=== PATIENT | male | born 1955 | race Hispanic/Latino ===

== ENCOUNTER 2017-08-26 01:33 | Inpatient (IN) | payer OTHER ==
[2017-08-26] MEDS ORDERED: Ondansetron HCl/PF 4 MG/2 ML Vial IVP PRN ×2 (05:17→07:31)
[2017-08-26] MEDS ORDERED: Ondansetron ODT 4 MG TAB SL PRN (05:17)
[2017-08-26 05:27] VITALS: BMI 30.3
[2017-08-26] MEDS ORDERED: Sodium Chloride 0.9% 1,000 ML IV SCH (05:30)
[2017-08-26] MEDS ORDERED: Ondansetron ODT 4 MG TAB PO PRN (07:31)
[2017-08-26] MEDS ORDERED: Senokot 8.6 MG TAB PO PRN (07:31)
[2017-08-26] MEDS ORDERED: Acetaminophen 325 MG TAB PO PRN (08:19)
[2017-08-26] MEDS ORDERED: Loperamide HCl 2 MG CAP PO PRN (08:19)
[2017-08-26] MEDS ORDERED: Milk Of Magnesia 30 ML UDCUP PO PRN (08:19)
[2017-08-26] MEDS ORDERED: Artificial Tear Sol 15 ML BOT EA EYE PRN (08:19)
[2017-08-26] MEDS ORDERED: Diabetic Tussin 200 MG/10 ML UDCUP PO PRN (08:19)
[2017-08-26] MEDS ORDERED: Sodium Chloride 0.65% Nasal 44 ML BOT EA NARE PRN (08:19)
[2017-08-26] MEDS ORDERED: Loratadine 10 MG TAB PO PRN (08:19)
[2017-08-26] MEDS ORDERED: hydrALAZINE 20 MG/ML VIAL SLOW IVP PRN (08:19)
[2017-08-26] MEDS ORDERED: Mag-Al 1200 mg/1200 mg/30 ML UDCUP PO PRN (08:19)
[2017-08-26] MEDS ORDERED: Eucerin (Mineral Oil/Petrolatum,White) 30 gm Jar TOP PRN (08:19)
[2017-08-26] MEDS ORDERED: Chloraseptic Spray 180 ml Bottle PO PRN (08:19)
[2017-08-26] MEDS: Famotidine 20 MG TAB PO SCH ×2 (08:51→21:15)
[2017-08-26] MEDS ORDERED: FLU VACC QS2017-18 36 mo. & older 0.5 ML SYRINGE IM ONE (09:00)
[2017-08-26] MEDS ORDERED: Prevnar 13-Val Conj/PF 0.5 ML SYRINGE IM ONE (09:00)
[2017-08-26 09:37] LABS: INR-International Normal Ratio 1.3; PTT 34.1 SEC (22.9-36.1); Prothrombin Time 16.7 SEC (12.0-14.7)
[2017-08-26 09:54] LABS: #Eosinphils 0.1 thou/uL (0.0-0.7); #Lymphocytes 0.9 thou/uL (1.20-3.40); #Monocytes 0.5 thou/uL (0.11-0.59); #Neutrophils 4.1 thou/uL (1.40-6.50); %Basophils 0.2 % (0.0-1.0); %Eosinophils 1.6 % (0.0-10.0); %Lymphocytes 16.2 % (21.0-51.0); %Monocytes 8.8 % (0.0-10.0); %Neutrophils 73.2 % (42.0-75.0); ALT (SGPT) 38 U/L (8-55); AST (SGOT) 50 U/L (5-34); Albumin 3.9 g/dL (3.4-4.8); Alkaline Phosphatase 106 U/L (40-150); Anion Gap 10 mmol/L (10-20); BUN (Urea Nitrogen) 10 mg/dL (8.4-25.7); Bilirubin, Total 1.8 mg/dL (0.2-1.2); Calc. Creatinine Clearance 136 mL/min (70-130); Calcium 8.9 mg/dL (7.8-10.44); Carbon Dioxide 23 mmol/L (23-31); Chloride 104 mmol/L (98-107); Estimated GFR-MDRD Greater than 90; Globulin 3.3 g/dL (2.4-3.5); Glucose 104 mg/dL (80-115); Hemoglobin 13.9 g/dL (14.0-18.0); Lipase 38 U/L (8-78); Mean Corpuscular HGB CONC 34.7 g/dL (32.0-36.0); Mean Corpuscular Hemoglobin 31.7 pg (27.0-31.0); Mean Corpuscular Volume 91.2 fl (80.0-94.0); Mean Platelet Volume 7.8 fL (7.4-10.4); Platelet Count 105 thou/uL (130-400); Potassium 3.7 mmol/L (3.5-5.1); Protein, Total 7.2 g/dL (5.8-8.1); RBC Distribution Width 11.9 % (11.5-14.5); Red Blood Cell (RBC) Count 4.38 mill/uL (4.70-6.10); Sodium 133 mmol/L (136-145); White Blood Cell (WBC) Count 5.6 thou/uL (4.8-10.8)
[2017-08-26 09:55] LABS: PLT Morphology Comment Appears Decreased; RBC Morphology Normal
[2017-08-26 11:09] LABS: HBSAg Index 0.33 S/CO (0-0.99); Hep B Surf Ag Non-Reactive S/CO (NonReactive)
[2017-08-26 11:10] LABS: Hep C IgG Ab Non-Reactive (NonReactive); Hep C Index 0.15 S/CO (0-0.79)
[2017-08-26 11:11] LABS: HBCM Index 0.06 S/CO (0-0.79); Hepatitis B Core IGM Abs Non-Reactive (NonReactive)
[2017-08-26 11:41] LABS: Hep A IgM AB Non-Reactive (NonReactive); Hep A IgM S/CO 0.15 S/CO (0-0.79)
--- NOTE | 2017-08-26 14:01 | HP ---
PRIMARY CARE PHYSICIAN: City call admission. REASON FOR ADMISSION: Transfer from [facility] for new onset cirrhosis, liver mass and esophageal varices. HISTORY OF PRESENT ILLNESS: A 62-year-old male with a history of liver cirrhosis, who went to [facility] Emergency Room for nausea and vomiting as well as lower abdominal pain, which was radiating to back and that is why patient had CT of the abdomen and pelvis where he was diagnosed with cirrhosis, esophageal varices, liver mass and portal vein thrombosis. The patient had routine blood test done which showed elevated LFTs including bilirubin 1.4. The patient has a remote history of heavy alcoholism up until 5 years ago. Now, he cut down smoking as well as alcohol drinking. The patient was having abdominal pain which was predominantly lower abdominal as well as epigastric, which was radiating to back, associated with nausea and vomiting and that this why the patient was gi noel GI cocktail at emergency room. The patient was also given Pepcid and IV fluid. Subsequently, he was transferred to our hospital for higher level of care. The patient also visited a local emergenc y room and he was told that he has gastritis, but the patient did not improve with the medication and that is why he went to [facility]. The patient denies any hematemesis. He denies any melena or hematochezia. He denies any fever or ch ills. He denies any confusion. He denies any focal motor symptoms. He denies any UTI symptoms. He denies any weight loss. He denies any flu-like illness. REVIEW OF SYSTEMS: Please see my HPI for pertinent positive and negative. All other review of syste m reviewed and negative except as mentioned in the HPI. Constitutional: Weight loss or gain, ability to conduct usual activities. Skin: Rash, itching. Eyes: Double vision, pain. ENT/Mouth: Nose bleeding, neck stiffness, pain, tenderness. Cardiovascular: Palpitations, dyspnea on exertion, orthopnea. Respiratory: Shortness of breath, wheezing, cough, hemoptysis, fever or night sweats. Gastrointestinal: Poor appetite, abdominal pain, heartburn, nausea, vomiting, constipation, or diarrhea. Genitourinary: Urgency, frequency, dysuria, nocturia. Musculoskeletal: Pain, swelling. Neurologic/Psychiatric: Anxiety, depression. Allergy/Immunologic: Skin rash, bleeding tendency. PAST MEDICAL HISTORY: Alcoholism. PAST SURGICAL HISTORY: Reviewed and negative. PAST PSYCHIATRIC HISTORY: Reviewed and negative. SOCIAL HISTORY: The patient is a former alcoholic. He has heavy alcoholism history, but he trying t o cut down drinking alcohol for last 5 years. He also smokes about half pack per day. He denies any other illicit drug abuse. FAMILY HISTORY: No strong family history of premature coronary artery disease, stroke or cancer. EMERGENCY ROOM COURSE: At [facility] reviewed. ALLERGIES: No known drug allergies. CURRENT HOME MEDICATIONS: The patient is not taking any prescribed or non-prescribed medications. PHYSICAL EXAMINATION: VITAL SIGNS: On arrival, blood pressure 164/79, pulse 74, respiratory rate 18, temperature 98.2, sat uration 97% on room air, weight 81.6 kilogram. GENERAL: The patient is currently alert, awake, no obvious acute distress. HEAD: Normocephalic, atraumatic. EYES: Pupils round, reactive to light. Extraocular muscle intact. ENT: Oropharynx within normal limits. Moist mucous membranes, no oral lesion, no pharyngeal erythem a, no exudate. NECK: Supple, no JVD, no thyromegaly, no carotid bruit, no jugular venous distention. LUNGS: Clear to auscultation without any rhonchi or rales. CARDIAC: S1, S2 regular. No murmur, no gallop, no rub. ABDOMEN: The patient does have right upper quadrant and lower quadrant mild discomfort, but no perit olivares sign, no guarding, no rigidity, no rebound, no organomegaly, no mass. BACK: Unremarkable. No CVA tenderness. GENITOURINARY: Within normal limits. GENITALIA: Normal. Testicles normal. No hydrocele. SKIN: No skin rash. HEMATOLOGIC: No lymphadenopathy. PSYCHIATRIC: Normal affect. NEUROLOGIC: The patient is alert, oriented x3. No focal neurological deficit noted. Motor and sens ation within normal limit. No cerebellar sign. Plantar bilateral flexor. EXTREMITIES: No edema. Good distal pulsation. SKIN: No skin rash. No palpable lymph nodes. SIGNIFICANT LABORATORY DATA: Calcium 9.3, BUN 8, creatinine 0.6, protein 7.7, AST 41, ALT 114, bilir ubin 2.8, amylase 89. Urinalysis unremarkable. WBC 6.0, hemoglobin 15.0, platelet 151. CT of the a bdomen and pelvis showing esophageal varices, portal vein thrombosis, liver mass. CBC: WBC 5.6, hem oglobin 13.9, platelet 105. INR 1.3. BMP: Sodium 133, potassium 3.7, chloride 104, carbon dioxide 23, anion gap 10, BUN 10, creatinine 0.625, glucose 104, calcium 8.9. LFTs: Bilirubin 1.8, AST 50, ALT 38, alkaline phosphatase is 106, albumin 3.9, lipase 38, ammonia 49. ASSESSMENT AND PLAN: 1. Abdominal pain likely related with gastritis/portal vein thrombosis. 2. Alcoholic cirrhosis with portal hypertension. 3. Esophageal varices, nonbleeding. 4. Liver mass. 5. Thrombocytopenia. 6. History of alcoholism. 7. Mild hyponatremia. 8. Abnormal LFTs and coagulopathy due to chronic liver disease. PLAN: 1. Admission to medical floor. Gastroenterology consultation for EGD for evaluation for upper esoph ageal varices. Alpha fetoprotein level and hepatitis profile will be checked. We will start Inderal 10 mg t.i.d., Lasix 20 mg p.o. daily and Aldactone 50 mg p.o. daily. We will also start folic acid and vitamin B12 therapy. 2. Deep venous thrombosis prophylaxis. Sequential compression device boots only. 3. Gastrointestinal prophylaxis, Pepcid 20 mg p.o. b.i.d. 4. Code status: The patient is FULL CODE. The patient does not have any surrogate decision maker. Disposition plan based on clinical course. We are expecting patient's stay in hospital more than 2 m idnights. Plan of care discussed with the patient in detail.
[2017-08-26] MEDS: traMADol HCl 50 MG TAB PO PRN (14:19)
--- NOTE | 2017-08-26 20:06 | CON ---
DATE OF CONSULTATION: 08/26/2017 REASON FOR CONSULTATION: Portal vein thrombosis. HISTORY OF PRESENT ILLNESS: Ms. Dykes is a 62-year-old gentleman who was admitted to this hospital in transfer from the emergency room in [place], [place] apparently for portal vein thrombosis. In t alking with the patient, he went to the emergency room secondary to some low back pain and some lower abdominal pain with cramping. There, he had an evaluation with labs, which were notable for a white count of 6.8, hemoglobin of 15, platelet count of 151 and normal differential. He had a basic metab olic profile that was normal. He had AST and ALT of 65 and 41, protein of 7.7 and a bilirubin of 1.4 and alkaline phosphatase of 133. He had a UA that showed some red blood cells. INR of 1. Apparent ly, a CAT scan was performed which the written reports state that he had possibly a mass in the liver and portal vein thrombosis. The formal report is not available. Presently, the patient states he h as no pain at all. He is eating well. He is not really sure why he is here in the hospital. He den ies weight loss. He denies history of liver disease although he was a heavy drinker in the past. He denies any knowledge of cirrhosis or pain. He has had no bleeding. He has never had a colonoscopy that he knows of. This was all obtained through a translation phone with the medical student and als o with staff here in the hospital. PAST MEDICAL HISTORY: Negative. PAST SURGICAL HISTORY: None. ALLERGIES: None known. SOCIAL HISTORY: The patient formerly drank alcohol heavily; he has not drank for 5 years. PRESENT MEDICATIONS: Tylenol, Maalox, vitamin B12, Pepcid, Folvite, Lasix, Apresoline, lactulose, Im odium, Eucerin cream, Zofran, Inderal, Aldactone, tramadol, Ultram. PHYSICAL EXAMINATION: GENERAL: The patient is resting comfortably in bed. VITAL SIGNS: Temperature is 98.1, pulse is 68, blood pressure is 127/69. LUNGS: Clear. CARDIOVASCULAR: Regular rate and rhythm without clicks or murmurs. ABDOMEN: Soft, nontender. There is no palpable hepatosplenomegaly. There is no shifting dullness. The liver is not palpable. EXTREMITIES: No clubbing, cyanosis or edema. There is no palmar erythema. There is no peripheral e sonal. LABORATORY AND X-RAY FINDINGS: CAT scan was reviewed with radiologist. The films the patient had wh en transferred over were reviewed with the radiologist today. In my review with him, they show varic es. There is a large mass in the right lobe of the liver and there is thrombosis in the right and le ft portal vein. ASSESSMENT: Liver mass and portal vein thrombosis, statistically this to be hepatocellular carcinoma . With the presentation of mass and portal vein thrombosis, there is no role for anticoagulation as that mass is the reason for this. RECOMMENDATIONS: We would check hepatitis A, B and C panel. We would check an alpha-fetoprotein and CEA and await those studies. If they are negative, the mass should be biopsied by Radiology. Howev er, if alpha-fetoprotein is positive, it is diagnostic of hepatocellular carcinoma. We will follow a long with you.
[2017-08-26] MEDS: Propranolol 10 MG TAB PO SCH (21:15)
[2017-08-26] MEDS: Temazepam 15 MG CAP PO PRN (21:15)
--- NOTE | 2017-08-26 22:14 | CON ---
DATE OF CONSULTATION: 08/26/2017 REASON FOR CONSULTATION: Liver mass. HISTORY OF PRESENT ILLNESS: Mr. Dykes is a 62-year-old Maldivian speaking male, who was transferred t o this facility from [facility] Emergency Room for liver mass, portal vein thrombosis and ci rrhosis. He was seen in the [place] ER several days ago for nausea and vomiting, treated for ga stritis. He did not improve with medication thus presented to [place] [facility]. In the emergency room, his labs showed a white count of 6.8, hemoglobin of 15 and a platelet count of 151,000. His bilirub in was 1.4, alkaline phosphatase is 113, ALT was 41 and AST was 64. There was a noncontrast CT done, the report is not available. Apparently it showed portal vein thrombosis, hepatic mass, esophageal varices, but no ascites. He was transferred here and Dr. Mack has seen the patient and AFP was dra pereira, which was nondiagnostic at 468. He also had a CEA drawn, which was elevated at 6.35. We were as ked to see the patient for recommendations. The patient is Maldivian speaking only. 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 He denies any discomfort at thi s time. He denies any recent weight loss. He does have a history of heavy alcohol use, but quit ove r 5 years ago, smokes half a pack of cigarettes daily. PAST MEDICAL HISTORY: Prior alcoholic use. PAST SURGICAL HISTORY: None. ALLERGIES: No known drug allergies. HOME MEDICATIONS: None. SOCIAL HISTORY: , lives with his in [place]. No current alcohol or illicit drug us e. FAMILY HISTORY: No history of cancer in his immediate family. REVIEW OF SYSTEMS: Twelve-point review of systems is negative except for noted in HPI. PHYSICAL EXAMINATION: VITAL SIGNS: Temperature is 98.4, pulse is 75, respiratory rate is 18, blood pressure is 126/69. He is 95% on room air. GENERAL: This is a well-developed, well-nourished male, in no acute distress. HEENT: Normocephalic, atraumatic. Pupils are equal and reactive to light. NECK: Supple. CARDIOVASCULAR: Regular rate and rhythm. LUNGS: Clear. ABDOMEN: Soft, nontender. There is no organomegaly palpable. He does have some tenderness in his r ight lower quadrant, but no rebound or guarding. EXTREMITIES: No clubbing, cyanosis or edema. SKIN: No rash. HEMATOLOGIC: No petechia or purpura. NEUROLOGIC: Nonfocal. PSYCHIATRIC: The patient is alert and oriented and appropriate. PERTINENT LABORATORY AND X-RAYS: Current WBCs are 5.6, hemoglobin 13.9, hematocrit 40, platelet coun t is 105,000, 73% neutrophils, 16% lymphocytes. PT is 16.7, INR is 1.3, PTT is 34.1. Sodium is 133, potassium 3.7, chloride 104, CO2 is 23, BUN is 10, creatinine 0.65, glucose is 104, calcium 8.9, tot al bilirubin is 1.8, AST is 50, ALT 38, alkaline phosphatase is 106, ammonia is 49. Serum total prot ein is 7.2, albumin 3.9, globulin 3.3, lipase is 38. AFP is 468.8. CEA 6.35. Hepatitis panel is ne gative. IMPRESSION: 1. Alcoholic cirrhosis with esophageal varices. 2. Possible portal vein thrombosis. 3. Liver mass on noncontrast CT. 4. Nondiagnostic AFP. DISCUSSION: There is no CT scan report in the chart. I have requested that report. It was a noncon trast CT and he may need to be rescanned to get a better look at the portal vein thrombosis. I do no t know if there is any metastatic disease or if his disease is limited to the liver. If it is limite d to the liver, then he may be a candidate for resection and should be evaluated at a primary liver f acility. He is currently not a candidate for anticoagulation until his esophageal varices have been evaluated. I know that GI has seen the patient. I do not know if they plan an EGD on this admission . The case was discussed in detail with Dr. Carbajal. He will follow up with the patient tomorrow. Thank you for the consult.
[2017-08-27 05:47] LABS: #Eosinphils 0.2 thou/uL (0.0-0.7); #Lymphocytes 1.3 thou/uL (1.20-3.40); #Monocytes 0.6 thou/uL (0.11-0.59); #Neutrophils 4.2 thou/uL (1.40-6.50); %Basophils 0.2 % (0.0-1.0); %Eosinophils 2.9 % (0.0-10.0); %Lymphocytes 20.2 % (21.0-51.0); %Monocytes 9.7 % (0.0-10.0); Hemoglobin 13.6 g/dL (14.0-18.0); Mean Corpuscular HGB CONC 33.5 g/dL (32.0-36.0); Mean Corpuscular Hemoglobin 30.7 pg (27.0-31.0); Mean Corpuscular Volume 91.7 fl (80.0-94.0); Mean Platelet Volume 7.9 fL (7.4-10.4); Platelet Count 132 thou/uL (130-400); RBC Distribution Width 12.1 % (11.5-14.5); Red Blood Cell (RBC) Count 4.43 mill/uL (4.70-6.10); White Blood Cell (WBC) Count 6.2 thou/uL (4.8-10.8)
[2017-08-27 06:09] LABS: ALT (SGPT) 33 U/L (8-55); AST (SGOT) 44 U/L (5-34); Albumin 3.7 g/dL (3.4-4.8); Alkaline Phosphatase 101 U/L (40-150); Anion Gap 9 mmol/L (10-20); BUN (Urea Nitrogen) 14 mg/dL (8.4-25.7); Bilirubin, Total 1.8 mg/dL (0.2-1.2); Calc. Creatinine Clearance 116 mL/min (70-130); Calcium 8.9 mg/dL (7.8-10.44); Carbon Dioxide 24 mmol/L (23-31); Chloride 104 mmol/L (98-107); Estimated GFR-MDRD Greater than 90; Globulin 3.2 g/dL (2.4-3.5); Glucose 103 mg/dL (80-115); Potassium 3.8 mmol/L (3.5-5.1); Protein, Total 6.9 g/dL (5.8-8.1); Sodium 133 mmol/L (136-145)
[2017-08-27] MEDS: traMADol HCl 50 MG TAB PO PRN (08:28)
[2017-08-27] MEDS: Spironolactone 25 MG TAB PO SCH (08:31)
[2017-08-27] MEDS: Propranolol 10 MG TAB PO SCH ×2 (08:31→21:12)
[2017-08-27] MEDS: Furosemide 20 MG TAB PO SCH (08:31)
[2017-08-27] MEDS: Cyanocobalamin (Vitamin B-12) 1,000 MCG TAB PO SCH (08:31)
[2017-08-27] MEDS: Folic Acid 1 MG TAB PO SCH (08:31)
[2017-08-27] MEDS: Famotidine 20 MG TAB PO SCH ×2 (08:31→21:11)
[2017-08-27] MEDS ORDERED: Morphine 2 MG/ML SYRINGE SLOW IVP SCH (08:45)
[2017-08-27] MEDS ORDERED: Morphine 4 MG/ML VIAL SLOW IVP SCH (08:45)
--- NOTE | 2017-08-27 12:08 | PDOC.PN ---
- Subjective Encounter Start Date: 08/27/17 Encounter Start Time: 07:00 -: old records requested/rev Patient seen and examined. No new complaints. No overnight events yesterday after food pt had severe abdominal pain, improved after morphin - Objective Resuscitation Status: Resuscitation Status FULL:Full Resuscitation MAR Reviewed: Yes Vital Signs & Weight: Vital Signs (12 hours) Temp Pulse Resp BP Pulse Ox 08/27/17 09:00 98.1 F 61 16 95 08/27/17 08:00 98.1 F 61 16 123/69 95 08/27/17 05:37 95 08/27/17 04:00 98.3 F 63 18 111/61 95 Weight Weight 182 lb 3.2 oz I&O: 08/26/17 08/27/17 08/28/17 06:59 06:59 06:59 Intake Total 150 960 Output Total 650 Balance 150 310 Result Diagrams: 08/27/17 05:33 08/27/17 05:33 Phys Exam - Physical Examination Constitutional: NAD HEENT: PERRLA, moist MMs, sclera anicteric Neck: no JVD, supple Respiratory: no wheezing, no rales, no rhonchi Cardiovascular: RRR, no significant murmur, no rub Gastrointestinal: soft, non-tender, no distention, positive bowel sounds Musculoskeletal: no edema, pulses present Neurological: non-focal, normal sensation, moves all 4 limbs Psychiatric: normal affect, A&O x 3 Skin: no rash, normal turgor Dx/Plan (1) Abnormal LFTs Code(s): R94.5 - ABNORMAL RESULTS OF LIVER FUNCTION STUDIES Status: Acute (2) Alcoholic cirrhosis of liver Code(s): K70.30 - ALCOHOLIC CIRRHOSIS OF LIVER WITHOUT ASCITES Status: Acute (3) Esophageal varices in alcoholic cirrhosis Code(s): K70.30 - ALCOHOLIC CIRRHOSIS OF LIVER WITHOUT ASCITES; I85.10 - SECONDARY ESOPHAGEAL VARICES WITHOUT BLEEDING Status: Acute (4) Hepatocellular carcinoma Code(s): C22.0 - LIVER CELL CARCINOMA Status: Acute (5) Hyponatremia Code(s): E87.1 - HYPO-OSMOLALITY AND HYPONATREMIA Status: Acute (6) Portal vein thrombosis Code(s): I81 - PORTAL VEIN THROMBOSIS Status: Acute (7) Obesity (BMI 30.0-34.9) Code(s): E66.9 - OBESITY, UNSPECIFIED Status: Chronic - Plan cont current plan of care * tumor marker elevated, further investigation will defer to GI or oncology * EGD quique defer to GI * will get CT report * no anticoagulation until varices addressed by GI as per oncology for portal vein thrombosis * medication reviewed as below * symptomatic treatment * stable otherwise for now. Review of Systems - Review of Systems Constitutional: negative: fever, chills, sweats, weakness, malaise, other ENT: negative: Ear Pain, Ear Discharge, Nose Pain, Nose Discharge, Nose Congestion, Mouth Pain, Mouth Swelling, Throat Pain, Throat Swelling, Other Respiratory: negative: Cough, Dry, Shortness of Breath, Hemoptysis, SOB with Excertion, Pleuritic Pain, Sputum, Wheezing Cardiovascular: negative: chest pain, palpitations, orthopnea, paroxysmal nocturnal dyspnea, edema, light headedness, other Gastrointestinal: negative: Nausea, Vomiting, Abdominal Pain, Diarrhea, Constipation, Melena, Hematochezia, Other Genitourinary: negative: Dysuria, Frequency, Incontinence, Hematuria, Retention , Other Musculoskeletal: negative: Neck Pain, Shoulder Pain, Arm Pain, Back Pain, Hand Pain, Leg Pain, Foot Pain, Other Skin: negative: Rash, Lesions, Tervin, Bruising, Other Neurological: negative: Weakness, Numbness, Incoordination, Change in Speech, Confusion, Seizures, Other - Medications/Allergies Allergies/Adverse Reactions: Allergies Allergy/AdvReac Type Severity Reaction Status Date / Time No Known Drug Allergies Allergy Verified 08/26/17 05:23 Medications: Current Medications Acetaminophen (Tylenol) 650 mg PO Q4H PRN PRN Reason: Headache/Fever or Mild Pain Al Hydroxide/Mg Hydroxide (Maalox) 15 ml PO Q4H PRN PRN Reason: Heartburn or Indigestion Artificial Tears (Tears Renewed 15ml Bottle) 0 drop EA EYE PRN PRN PRN Reason: Dry Eyes Cyanocobalamin (Vitamin B-12) 1,000 mcg PO DAILY [facility] Last Admin: 08/27/17 08:31 Dose: 1,000 mcg Famotidine (Pepcid) 20 mg PO BID [facility] Last Admin: 08/27/17 08:31 Dose: 20 mg Folic Acid (Folvite) 1 mg PO DAILY [facility] Last Admin: 08/27/17 08:31 Dose: 1 mg Furosemide (Lasix) 20 mg PO DAILY [facility] Last Admin: 08/27/17 08:31 Dose: 20 mg Guaifenesin (Robitussin Sf) 200 mg PO Q4H PRN PRN Reason: Cough Hydralazine HCl (Apresoline) 10 mg SLOW IVP Q4H PRN PRN Reason: Systolic BP > 180 Lactulose (Lactulose) 10 gm PO DAILYPRN PRN PRN Reason: Constipation Loperamide HCl (Imodium) 2 mg PO PRN PRN PRN Reason: Diarrhea/Loose Stools Loratadine (Claritin) 10 mg PO DAILYPRN PRN PRN Reason: Sinus Symptoms Magnesium Hydroxide (Milk Of Magnesium) 30 ml PO DAILYPRN PRN PRN Reason: Constipation Mineral Oil/White Petrolatum (Eucerin Cream) 0 gm TOP BIDPRN PRN PRN Reason: Dry Skin Ondansetron HCl (Zofran Odt) 4 mg PO Q6H PRN PRN Reason: Nausea/Vomiting Ondansetron HCl (Zofran) 4 mg IVP Q6H PRN PRN Reason: Nausea/Vomiting Phenol (Chloraseptic [place] 180 Ml Bot) 0 ml PO PRN PRN PRN Reason: Sore Throat Propranolol HCl (Inderal) 10 mg PO BID [facility] Last Admin: 08/27/17 08:31 Dose: 10 mg Senna (Senokot) 2 tab PO HSPRN PRN PRN Reason: Constipation Sodium Chloride (Flush - Normal Saline) 10 ml IVF Q12HR [facility] Last Admin: 08/27/17 08:56 Dose: 10 ml Sodium Chloride (Flush - Normal Saline) 10 ml IVF PRN PRN PRN Reason: Saline Flush Sodium Chloride (Jenkins Nasal [place] 0.65%) 0 ml EA NARE QIDPRN PRN PRN Reason: Nasal Congestion Spironolactone (Aldactone) 25 mg PO QAM-WM [facility] Last Admin: 08/27/17 08:31 Dose: 25 mg Temazepam (Restoril) 15 mg PO HSPRN PRN PRN Reason: Insomnia Last Admin: 08/26/17 21:15 Dose: 15 mg Tramadol HCl (Ultram) 50 mg PO Q4H PRN PRN Reason: Moderate Pain (4-6) Last Admin: 08/27/17 08:28 Dose: 50 mg
--- NOTE | 2017-08-27 16:47 | PRG ---
DATE OF SERVICE: 08/27/2017 SUBJECTIVE: Mr. Dykes had some pain after eating, usually in the lower abdomen. He has been stable . OBJECTIVE: VITAL SIGNS: Temperature is 97.6, pulse 58, blood pressure 102/60. ABDOMEN: Soft, nontender. There is no rebound. There is no guarding. LABORATORY STUDIES: White count is 6.2, hemoglobin 13.6, platelet count 132. Liver function tests n ormal. CEA was 6.35. Alpha-fetoprotein 468. IMAGING: There is still no formal report from [facility] from the CT that was read from the ER. ASSESSMENT: Large liver mass with portal venous clot in both right hepatic lobes and main portal vei n on CT disc from outside hospital. This was reviewed with our radiologist here. This is most likel y a hepatoma with portal venous invasion. This is going to limit any therapy to palliative therapy. I am not sure he is even going to be a candidate for local ablative therapy. PLAN: We will get an MRI of his liver 3 face today to get a better idea if this is invasion of the p ortal vein with cancer or just portal venous thrombosis secondary to increased portal hypertension fr om the tumor itself. I have discussed with Oncology. They are comfortable with this as well. This may help us make a definitive diagnosis on need to proceed with a biopsy in light of his mildly low A FP.
[2017-08-27] MEDS ORDERED: Morphine 10 MG/0.5 ML ORAL SYRINGE SL PRN (20:02)
--- NOTE | 2017-08-27 20:05 | PDOC.EVN ---
Event Note - Event Note Event Note: pt c/o severe pain d/w bedside nursing pt tolerated morphine 2mg IV x1 earlier today for similar pain morphine 5mg SL q6h PRN for severe and breakthrough pain ordered close VSS post administration requested
[2017-08-27] MEDS: Temazepam 15 MG CAP PO PRN (21:11)
[2017-08-28] MEDS: Cyanocobalamin (Vitamin B-12) 1,000 MCG TAB PO SCH (08:21)
[2017-08-28] MEDS: Spironolactone 25 MG TAB PO SCH (08:21)
[2017-08-28] MEDS: Propranolol 10 MG TAB PO SCH ×2 (08:22→21:38)
[2017-08-28] MEDS: Folic Acid 1 MG TAB PO SCH (08:22)
[2017-08-28] MEDS: Famotidine 20 MG TAB PO SCH ×2 (08:22→21:38)
[2017-08-28] MEDS: Furosemide 20 MG TAB PO SCH (08:23)
--- NOTE | 2017-08-28 14:25 | PDOC.PN ---
- Subjective Encounter Start Date: 08/28/17 Encounter Start Time: 07:00 Pt seen for followup re: liver mass. Abdo pain is better. No nausea or vomiting. - Objective Resuscitation Status: Resuscitation Status FULL:Full Resuscitation MAR Reviewed: Yes Vital Signs & Weight: Vital Signs (12 hours) Temp Pulse Resp BP Pulse Ox 08/28/17 11:58 98.1 F 60 22 H 117/66 94 L 08/28/17 08:00 98.5 F 62 22 H 96 08/28/17 07:46 98.5 F 62 22 H 97/52 L 96 08/28/17 07:41 92 L 08/28/17 05:14 96 08/28/17 04:00 98.1 F 62 18 104/62 Weight Weight 182 lb 3.2 oz I&O: 08/27/17 08/28/17 08/29/17 06:59 06:59 06:59 Intake Total 960 850 Output Total 650 700 Balance 310 150 Result Diagrams: 08/27/17 05:33 08/27/17 05:33 Phys Exam - Physical Examination Obese HEENT: PERRLA, moist MMs, oral pharynx no lesions Scleral icterus Neck: no nodes, no JVD, supple, full ROM Respiratory: no wheezing, no rales, no rhonchi, clear to auscultation bilateral Cardiovascular: RRR, no rub Gastrointestinal: soft, non-tender, no distention, positive bowel sounds Neurological: moves all 4 limbs Psychiatric: normal affect Dx/Plan (1) Liver neoplasm Status: Acute Comment: MRI pending to evaluate. GI and oncology services following. (2) Portal vein thrombosis Code(s): I81 - PORTAL VEIN THROMBOSIS Status: Acute Comment: No need for anticoagulation, per GI service since this is associated with liver mass (3) Abnormal LFTs Code(s): R94.5 - ABNORMAL RESULTS OF LIVER FUNCTION STUDIES Status: Acute Comment: Likely due to liver mass (4) Hyponatremia Code(s): E87.1 - HYPO-OSMOLALITY AND HYPONATREMIA Status: Acute Comment: Mild, likely asymptomatic (5) Obesity (BMI 30.0-34.9) Code(s): E66.9 - OBESITY, UNSPECIFIED Status: Chronic - Plan out of bed/ambulate, DVT proph w/SCDs * . Review of Systems - Review of Systems Constitutional: negative: fever, chills, sweats, weakness, malaise Respiratory: negative: Cough, Dry, Shortness of Breath, Hemoptysis, SOB with Excertion, Pleuritic Pain, Sputum, Wheezing Cardiovascular: negative: chest pain, palpitations, orthopnea, paroxysmal nocturnal dyspnea, edema, light headedness Gastrointestinal: Abdominal Pain. negative: Nausea, Vomiting, Diarrhea, Constipation, Melena, Hematochezia Skin: negative: Rash, Lesions, Trevin, Bruising - Medications/Allergies Allergies/Adverse Reactions: Allergies Allergy/AdvReac Type Severity Reaction Status Date / Time No Known Drug Allergies Allergy Verified 08/26/17 05:23 Medications: Current Medications Acetaminophen (Tylenol) 650 mg PO Q4H PRN PRN Reason: Headache/Fever or Mild Pain Al Hydroxide/Mg Hydroxide (Maalox) 15 ml PO Q4H PRN PRN Reason: Heartburn or Indigestion Artificial Tears (Tears Renewed 15ml Bottle) 0 drop EA EYE PRN PRN PRN Reason: Dry Eyes Cyanocobalamin (Vitamin B-12) 1,000 mcg PO DAILY [facility] Last Admin: 08/28/17 08:21 Dose: 1,000 mcg Famotidine (Pepcid) 20 mg PO BID [facility] Last Admin: 08/28/17 08:22 Dose: 20 mg Folic Acid (Folvite) 1 mg PO DAILY [facility] Last Admin: 08/28/17 08:22 Dose: 1 mg Furosemide (Lasix) 20 mg PO DAILY [facility] Last Admin: 08/28/17 08:23 Dose: Not Given Guaifenesin (Robitussin Sf) 200 mg PO Q4H PRN PRN Reason: Cough Hydralazine HCl (Apresoline) 10 mg SLOW IVP Q4H PRN PRN Reason: Systolic BP > 180 Lactulose (Lactulose) 10 gm PO DAILYPRN PRN PRN Reason: Constipation Loperamide HCl (Imodium) 2 mg PO PRN PRN PRN Reason: Diarrhea/Loose Stools Loratadine (Claritin) 10 mg PO DAILYPRN PRN PRN Reason: Sinus Symptoms Magnesium Hydroxide (Milk Of Magnesium) 30 ml PO DAILYPRN PRN PRN Reason: Constipation Mineral Oil/White Petrolatum (Eucerin Cream) 0 gm TOP BIDPRN PRN PRN Reason: Dry Skin Morphine Sulfate (Roxanol Solution) 5 mg SL Q6HR PRN PRN Reason: Severe Pain (7-10) Ondansetron HCl (Zofran Odt) 4 mg PO Q6H PRN PRN Reason: Nausea/Vomiting Ondansetron HCl (Zofran) 4 mg IVP Q6H PRN PRN Reason: Nausea/Vomiting Phenol (Chloraseptic [place] 180 Ml Bot) 0 ml PO PRN PRN PRN Reason: Sore Throat Propranolol HCl (Inderal) 10 mg PO BID [facility] Last Admin: 08/28/17 08:22 Dose: 10 mg Senna (Senokot) 2 tab PO HSPRN PRN PRN Reason: Constipation Sodium Chloride (Flush - Normal Saline) 10 ml IVF Q12HR [facility] Last Admin: 08/28/17 08:23 Dose: 10 ml Sodium Chloride (Flush - Normal Saline) 10 ml IVF PRN PRN PRN Reason: Saline Flush Sodium Chloride ([place] Nasal [place] 0.65%) 0 ml EA NARE QIDPRN PRN PRN Reason: Nasal Congestion Spironolactone (Aldactone) 25 mg PO QAM-WM [facility] Last Admin: 08/28/17 08:21 Dose: Not Given Temazepam (Restoril) 15 mg PO HSPRN PRN PRN Reason: Insomnia Last Admin: 08/27/17 21:11 Dose: 15 mg Tramadol HCl (Ultram) 50 mg PO Q4H PRN PRN Reason: Moderate Pain (4-6) Last Admin: 08/27/17 08:28 Dose: 50 mg
--- NOTE | 2017-08-28 14:32 | MRI ---
MRI ABDOMEN WITH AND WITHOUT CONTRAST: HISTORY: Mass. Liver mass. Questionable hepatoma. COMPARISON: None. TECHNIQUE: Multiplanar, multisequence MRI performed prior to and after the intravenous administration of contras t. FINDINGS: Liver contour is markedly nodular. Within the hepatic segments 7 and 8 as well as in segment 4B, 4A, and 5 is a mass with predominantly peripheral enhancement of the some central solid components with large volume central necrosis extending into the left and right portal vein as well as the main chyna l vein to the splenic confluence of the SMV. There are multiple cysts of the liver. No intrahepatic or extrahepatic biliary dilatation. The mass itself measures approximately 9.5 x 8.6 x 9 cm. No hydronephrosis. Small renal cyst. No dilatation of the pancreatic duct. The aortic contour is nonaneurysmal. No dilated loops of large or small bowel. The hepatic masses have diffusion restriction. IMPRESSION: 1. Large hepatic mass in the right lobe of the liver extending to the left and right portal veins koch ggestive of hepatocellular carcinoma with tumor thrombus. Mass measures approximately 9.5 x 8.6 x 9 cm. 2. Small left gastric and chyna hepatis lymph nodes. 3. The tumor thrombus extends throughout the right and left portal veins and throughout the main por jason vein to the splenic components. The superior mesenteric vein itself is patent. 4. Mild splenomegaly. 5. Small volume perigastric and perisplenic varices. 6. Hepatic cirrhosis. POS: [facility]
--- NOTE | 2017-08-28 16:22 | PRG ---
DATE OF SERVICE: 08/28/2017 SUBJECTIVE: Mr. Dykes has had no further abdominal pain but when he has had, pain is always related to eating and is always in the suprapubic area. He is having normal bowel movements with no blood. OBJECTIVE: VITAL SIGNS: Temperature 98.1, pulse 60, blood pressure 117/66. ABDOMEN: Soft and nontender. His son and at the bedside. LABORATORY DATA: None. ASSESSMENT: Liver mass. The report has finally come from [place], from his previous CAT scan wit hout contrast, 7 x 8 cm mass involving the left and right lobes of the liver with portal vein abnorma lities suggestive of clot in both the main portal vein and intrahepatic portal veins. There is also stranding in the lower abdomen. My main concern at this point in time, this patient has a malignant lesion likely hepatocellular carc inoma in the liver with portal vein thrombosis and there may be some ongoing progression of clot to t he superior mesenteric vein and some of his symptoms postprandial may be ischemic. We will wait for the results of the MRI liver 3 phase, which has been done about an hour and a half ago. Presently, luna colmenares stays here in the hospital at least until the results that are figured out. The only thing th at troubles me is the diagnosis of hepatoma. AFP is relatively low at about 455. Further dispositio n will be made based on results of the MRI.
[2017-08-28] MEDS: Temazepam 15 MG CAP PO PRN (21:39)
[2017-08-29] MEDS: Famotidine 20 MG TAB PO SCH ×2 (08:05→20:02)
[2017-08-29] MEDS: Spironolactone 25 MG TAB PO SCH (08:05)
[2017-08-29] MEDS: Cyanocobalamin (Vitamin B-12) 1,000 MCG TAB PO SCH (08:05)
[2017-08-29] MEDS: Propranolol 10 MG TAB PO SCH ×2 (08:05→20:02)
[2017-08-29] MEDS: Folic Acid 1 MG TAB PO SCH (08:05)
[2017-08-29] MEDS: Furosemide 20 MG TAB PO SCH (08:05)
--- NOTE | 2017-08-29 11:11 | PDOC.PN ---
- Subjective Encounter Start Date: 08/29/17 Encounter Start Time: 07:00 Patient seen and examined. No new complaints. No overnight events - Objective Resuscitation Status: Resuscitation Status FULL:Full Resuscitation MAR Reviewed: Yes Vital Signs & Weight: Vital Signs (12 hours) Temp Pulse Resp BP Pulse Ox 08/29/17 07:27 97 F L 63 16 112/57 L 93 L 08/29/17 04:00 98.4 F 60 20 114/60 Weight Weight 182 lb 3.2 oz I&O: 08/28/17 08/29/17 08/30/17 06:59 06:59 06:59 Intake Total 850 1230 360 Output Total 700 Balance 150 1230 360 Result Diagrams: 08/27/17 05:33 08/27/17 05:33 Radiology Reviewed by me: Yes (MRI abdomen noted) Phys Exam - Physical Examination Constitutional: NAD HEENT: PERRLA, moist MMs, sclera anicteric Neck: no JVD, supple Respiratory: no wheezing, no rales, no rhonchi Cardiovascular: RRR, no significant murmur, no rub Gastrointestinal: soft, non-tender, no distention, positive bowel sounds Musculoskeletal: no edema, pulses present Neurological: non-focal, normal sensation, moves all 4 limbs Psychiatric: normal affect, A&O x 3 Skin: no rash, normal turgor Dx/Plan (1) Abnormal LFTs Code(s): R94.5 - ABNORMAL RESULTS OF LIVER FUNCTION STUDIES Status: Acute Comment: Likely due to liver mass (2) Alcoholic cirrhosis of liver Code(s): K70.30 - ALCOHOLIC CIRRHOSIS OF LIVER WITHOUT ASCITES Status: Acute (3) Esophageal varices in alcoholic cirrhosis Code(s): K70.30 - ALCOHOLIC CIRRHOSIS OF LIVER WITHOUT ASCITES; I85.10 - SECONDARY ESOPHAGEAL VARICES WITHOUT BLEEDING Status: Acute (4) Hepatocellular carcinoma Code(s): C22.0 - LIVER CELL CARCINOMA Status: Acute (5) Hyponatremia Code(s): E87.1 - HYPO-OSMOLALITY AND HYPONATREMIA Status: Acute (6) Portal vein thrombosis Code(s): I81 - PORTAL VEIN THROMBOSIS Status: Acute Comment: No need for anticoagulation, per GI service since this is associated with liver mass (7) Obesity (BMI 30.0-34.9) Code(s): E66.9 - OBESITY, UNSPECIFIED Status: Chronic - Plan cont current plan of care, plan discussed w/ family * will try to transfer to higher level of care if possible for treatment of underlying HCC * I have discussed with family who speaks danish and belarusian and answered all questions and updated plan and test results * medication reviewed as below * symptomatic treatment. Review of Systems - Review of Systems Eyes: negative: Pain, Vision Change, Conjunctivae Inflammation, Eyelid Inflammation, Redness, Other ENT: negative: Ear Pain, Ear Discharge, Nose Pain, Nose Discharge, Nose Congestion, Mouth Pain, Mouth Swelling, Throat Pain, Throat Swelling, Other Respiratory: negative: Cough, Dry, Shortness of Breath, Hemoptysis, SOB with Excertion, Pleuritic Pain, Sputum, Wheezing Cardiovascular: negative: chest pain, palpitations, orthopnea, paroxysmal nocturnal dyspnea, edema, light headedness, other Gastrointestinal: negative: Nausea, Vomiting, Abdominal Pain, Diarrhea, Constipation, Melena, Hematochezia, Other Genitourinary: negative: Dysuria, Frequency, Incontinence, Hematuria, Retention , Other Musculoskeletal: negative: Neck Pain, Shoulder Pain, Arm Pain, Back Pain, Hand Pain, Leg Pain, Foot Pain, Other Skin: negative: Rash, Lesions, Trevin, Bruising, Other - Medications/Allergies Allergies/Adverse Reactions: Allergies Allergy/AdvReac Type Severity Reaction Status Date / Time No Known Drug Allergies Allergy Verified 08/26/17 05:23 Medications: Current Medications Acetaminophen (Tylenol) 650 mg PO Q4H PRN PRN Reason: Headache/Fever or Mild Pain Al Hydroxide/Mg Hydroxide (Maalox) 15 ml PO Q4H PRN PRN Reason: Heartburn or Indigestion Artificial Tears (Tears Renewed 15ml Bottle) 0 drop EA EYE PRN PRN PRN Reason: Dry Eyes Cyanocobalamin (Vitamin B-12) 1,000 mcg PO DAILY [facility] Last Admin: 08/29/17 08:05 Dose: 1,000 mcg Famotidine (Pepcid) 20 mg PO BID [facility] Last Admin: 08/29/17 08:05 Dose: 20 mg Folic Acid (Folvite) 1 mg PO DAILY [facility] Last Admin: 08/29/17 08:05 Dose: 1 mg Furosemide (Lasix) 20 mg PO DAILY [facility] Last Admin: 08/29/17 08:05 Dose: 20 mg Guaifenesin (Robitussin Sf) 200 mg PO Q4H PRN PRN Reason: Cough Hydralazine HCl (Apresoline) 10 mg SLOW IVP Q4H PRN PRN Reason: Systolic BP > 180 Lactulose (Lactulose) 10 gm PO DAILYPRN PRN PRN Reason: Constipation Loperamide HCl (Imodium) 2 mg PO PRN PRN PRN Reason: Diarrhea/Loose Stools Loratadine (Claritin) 10 mg PO DAILYPRN PRN PRN Reason: Sinus Symptoms Magnesium Hydroxide (Milk Of Magnesium) 30 ml PO DAILYPRN PRN PRN Reason: Constipation Mineral Oil/White Petrolatum (Eucerin Cream) 0 gm TOP BIDPRN PRN PRN Reason: Dry Skin Morphine Sulfate (Roxanol Solution) 5 mg SL Q6HR PRN PRN Reason: Severe Pain (7-10) Ondansetron HCl (Zofran Odt) 4 mg PO Q6H PRN PRN Reason: Nausea/Vomiting Ondansetron HCl (Zofran) 4 mg IVP Q6H PRN PRN Reason: Nausea/Vomiting Phenol (Chloraseptic [place] 180 Ml Bot) 0 ml PO PRN PRN PRN Reason: Sore Throat Propranolol HCl (Inderal) 10 mg PO BID [facility] Last Admin: 08/29/17 08:05 Dose: 10 mg Senna (Senokot) 2 tab PO HSPRN PRN PRN Reason: Constipation Sodium Chloride (Flush - Normal Saline) 10 ml IVF Q12HR [facility] Last Admin: 08/29/17 08:05 Dose: 10 ml Sodium Chloride (Flush - Normal Saline) 10 ml IVF PRN PRN PRN Reason: Saline Flush Sodium Chloride ([place] Nasal [place] 0.65%) 0 ml EA NARE QIDPRN PRN PRN Reason: Nasal Congestion Spironolactone (Aldactone) 25 mg PO QAM-WM [facility] Last Admin: 08/29/17 08:05 Dose: 25 mg Temazepam (Restoril) 15 mg PO HSPRN PRN PRN Reason: Insomnia Last Admin: 08/28/17 21:39 Dose: 15 mg Tramadol HCl (Ultram) 50 mg PO Q4H PRN PRN Reason: Moderate Pain (4-6) Last Admin: 08/27/17 08:28 Dose: 50 mg
--- NOTE | 2017-08-29 13:26 | PRG ---
DATE OF SERVICE: 08/29/2017 SUBJECTIVE: Mr. Dykes had a good night. He has had no pain. He was able to eat without difficulty . This is according to the nurses and talked to the son on the phone who is here with him earlier to day. The patient speaks Cook Islander only. PHYSICAL EXAMINATION: VITAL SIGNS: Temperature is 97.4, pulse 54, blood pressure 113/68. ABDOMEN: Soft and nontender. LABORATORY STUDIES: None. MRI from yesterday showed large hepatic mass right lobe of the liver exte nding to the left and right portal vein suggesting hepatocellular carcinoma with tumor thrombus, mass es 9 x 8 x 9 cm, small left gastric and portal hepatis lymph nodes, tumor thrombus extends to the lef t and right portal veins to the main portal veins, splenic components, some mild splenomegaly, small perigastric and perisplenic varices and cirrhosis. ASSESSMENT: This is a 62-year-old gentleman with advanced hepatocellular carcinoma with vascular inv asion. He has a very good functional status, but unfortunately, he is likely not a candidate for [place] y much in the way of therapy. We will go ahead and contact [facility] tomorrow and see if they have any options for him and consider transfer there. If not, then care would be pal liative.
[2017-08-30 05:55] LABS: INR-International Normal Ratio 1.3; Prothrombin Time 16.8 SEC (12.0-14.7)
[2017-08-30 05:56] LABS: #Eosinphils 0.2 thou/uL (0.0-0.7); #Lymphocytes 1.4 thou/uL (1.20-3.40); #Neutrophils 4.3 thou/uL (1.40-6.50); %Basophils 0.4 % (0.0-1.0); %Eosinophils 2.4 % (0.0-10.0); %Lymphocytes 20.7 % (21.0-51.0); %Monocytes 14.4 % (0.0-10.0); %Neutrophils 62.1 % (42.0-75.0); Hemoglobin 14.1 g/dL (14.0-18.0); Mean Corpuscular HGB CONC 33.4 g/dL (32.0-36.0); Mean Corpuscular Hemoglobin 31.4 pg (27.0-31.0); Mean Corpuscular Volume 93.9 fl (80.0-94.0); Mean Platelet Volume 8.5 fL (7.4-10.4); Platelet Count 148 thou/uL (130-400); Red Blood Cell (RBC) Count 4.48 mill/uL (4.70-6.10); White Blood Cell (WBC) Count 6.9 thou/uL (4.8-10.8)
[2017-08-30 06:25] LABS: ALT (SGPT) 29 U/L (8-55); AST (SGOT) 40 U/L (5-34); Albumin 3.7 g/dL (3.4-4.8); Alkaline Phosphatase 109 U/L (40-150); Anion Gap 10 mmol/L (10-20); BUN (Urea Nitrogen) 13 mg/dL (8.4-25.7); Bilirubin, Total 1.7 mg/dL (0.2-1.2); Calc. Creatinine Clearance 116 mL/min (70-130); Calcium 9.1 mg/dL (7.8-10.44); Carbon Dioxide 25 mmol/L (23-31); Chloride 103 mmol/L (98-107); Estimated GFR-MDRD Greater than 90; Globulin 3.3 g/dL (2.4-3.5); Glucose 97 mg/dL (80-115); Potassium 3.8 mmol/L (3.5-5.1); Sodium 134 mmol/L (136-145)
[2017-08-30 09:11] VITALS: BP 105/57; TEMP 98.7
[2017-08-30] MEDS: Spironolactone 25 MG TAB PO SCH (09:27)
[2017-08-30] MEDS: Cyanocobalamin (Vitamin B-12) 1,000 MCG TAB PO SCH (09:28)
[2017-08-30] MEDS: Propranolol 10 MG TAB PO SCH (09:30)
[2017-08-30] MEDS: Folic Acid 1 MG TAB PO SCH (09:30)
[2017-08-30] MEDS: Furosemide 20 MG TAB PO SCH (09:30)
--- NOTE | 2017-08-30 10:03 | PDOC.PN ---
- Subjective Encounter Start Date: 08/30/17 Encounter Start Time: 07:10 Patient seen and examined. No new complaints. No overnight events - Objective Resuscitation Status: Resuscitation Status FULL:Full Resuscitation MAR Reviewed: Yes Vital Signs & Weight: Vital Signs (12 hours) Temp Pulse Resp BP Pulse Ox 08/30/17 09:09 98.7 F 62 18 105/57 L 95 Weight Weight 182 lb 3.2 oz I&O: 08/29/17 08/30/17 08/31/17 06:59 06:59 06:59 Intake Total 1230 560 Balance 1230 560 Result Diagrams: 08/30/17 05:28 08/30/17 05:28 Phys Exam - Physical Examination Constitutional: NAD HEENT: PERRLA, moist MMs, sclera anicteric Neck: no JVD, supple Respiratory: no wheezing, no rales, no rhonchi Cardiovascular: RRR, no significant murmur, no rub Gastrointestinal: soft, non-tender, no distention, positive bowel sounds Musculoskeletal: no edema, pulses present Neurological: non-focal, normal sensation, moves all 4 limbs Psychiatric: normal affect, A&O x 3 Skin: no rash, normal turgor Dx/Plan (1) Abnormal LFTs Code(s): R94.5 - ABNORMAL RESULTS OF LIVER FUNCTION STUDIES Status: Acute Comment: Likely due to liver mass (2) Alcoholic cirrhosis of liver Code(s): K70.30 - ALCOHOLIC CIRRHOSIS OF LIVER WITHOUT ASCITES Status: Acute (3) Esophageal varices in alcoholic cirrhosis Code(s): K70.30 - ALCOHOLIC CIRRHOSIS OF LIVER WITHOUT ASCITES; I85.10 - SECONDARY ESOPHAGEAL VARICES WITHOUT BLEEDING Status: Acute (4) Hepatocellular carcinoma Code(s): C22.0 - LIVER CELL CARCINOMA Status: Acute (5) Hyponatremia Code(s): E87.1 - HYPO-OSMOLALITY AND HYPONATREMIA Status: Acute (6) Portal vein thrombosis Code(s): I81 - PORTAL VEIN THROMBOSIS Status: Acute Comment: No need for anticoagulation, per GI service since this is associated with liver mass (7) Obesity (BMI 30.0-34.9) Code(s): E66.9 - OBESITY, UNSPECIFIED Status: Chronic - Plan cont current plan of care, plan discussed w/ family * will try to transfer to [facility]. * as per GI there is possible treatment available for him * family wanted to take him to [facility] but they have not decided * based on family decision will initiate transfer process, if possible * medication reviewed as below * symptomatic treatment Review of Systems - Review of Systems Constitutional: negative: fever, chills, sweats, weakness, malaise, other Eyes: negative: Pain, Vision Change, Conjunctivae Inflammation, Eyelid Inflammation, Redness, Other ENT: negative: Ear Pain, Ear Discharge, Nose Pain, Nose Discharge, Nose Congestion, Mouth Pain, Mouth Swelling, Throat Pain, Throat Swelling, Other Respiratory: negative: Cough, Dry, Shortness of Breath, Hemoptysis, SOB with Excertion, Pleuritic Pain, Sputum, Wheezing Cardiovascular: negative: chest pain, palpitations, orthopnea, paroxysmal nocturnal dyspnea, edema, light headedness, other Gastrointestinal: negative: Nausea, Vomiting, Abdominal Pain, Diarrhea, Constipation, Melena, Hematochezia, Other Genitourinary: negative: Dysuria, Frequency, Incontinence, Hematuria, Retention , Other Musculoskeletal: negative: Neck Pain, Shoulder Pain, Arm Pain, Back Pain, Hand Pain, Leg Pain, Foot Pain, Other Skin: negative: Rash, Lesions, Trevin, Bruising, Other - Medications/Allergies Allergies/Adverse Reactions: Allergies Allergy/AdvReac Type Severity Reaction Status Date / Time No Known Drug Allergies Allergy Verified 08/26/17 05:23 Medications: Current Medications Acetaminophen (Tylenol) 650 mg PO Q4H PRN PRN Reason: Headache/Fever or Mild Pain Al Hydroxide/Mg Hydroxide (Maalox) 15 ml PO Q4H PRN PRN Reason: Heartburn or Indigestion Artificial Tears (Tears Renewed 15ml Bottle) 0 drop EA EYE PRN PRN PRN Reason: Dry Eyes Cyanocobalamin (Vitamin B-12) 1,000 mcg PO DAILY [facility] Last Admin: 08/30/17 09:28 Dose: 1,000 mcg Famotidine (Pepcid) 20 mg PO BID [facility] Last Admin: 08/29/17 20:02 Dose: 20 mg Folic Acid (Folvite) 1 mg PO DAILY [facility] Last Admin: 08/30/17 09:30 Dose: 1 mg Furosemide (Lasix) 20 mg PO DAILY [facility] Last Admin: 08/30/17 09:30 Dose: 20 mg Guaifenesin (Robitussin Sf) 200 mg PO Q4H PRN PRN Reason: Cough Hydralazine HCl (Apresoline) 10 mg SLOW IVP Q4H PRN PRN Reason: Systolic BP > 180 Lactulose (Lactulose) 10 gm PO DAILYPRN PRN PRN Reason: Constipation Loperamide HCl (Imodium) 2 mg PO PRN PRN PRN Reason: Diarrhea/Loose Stools Loratadine (Claritin) 10 mg PO DAILYPRN PRN PRN Reason: Sinus Symptoms Magnesium Hydroxide (Milk Of Magnesium) 30 ml PO DAILYPRN PRN PRN Reason: Constipation Mineral Oil/White Petrolatum (Eucerin Cream) 0 gm TOP BIDPRN PRN PRN Reason: Dry Skin Morphine Sulfate (Roxanol Solution) 5 mg SL Q6HR PRN PRN Reason: Severe Pain (7-10) Ondansetron HCl (Zofran Odt) 4 mg PO Q6H PRN PRN Reason: Nausea/Vomiting Ondansetron HCl (Zofran) 4 mg IVP Q6H PRN PRN Reason: Nausea/Vomiting Phenol (Chloraseptic [place] 180 Ml Bot) 0 ml PO PRN PRN PRN Reason: Sore Throat Propranolol HCl (Inderal) 10 mg PO BID [facility] Last Admin: 08/30/17 09:30 Dose: 10 mg Senna (Senokot) 2 tab PO HSPRN PRN PRN Reason: Constipation Sodium Chloride (Flush - Normal Saline) 10 ml IVF Q12HR [facility] Last Admin: 08/30/17 09:31 Dose: 10 ml Sodium Chloride (Flush - Normal Saline) 10 ml IVF PRN PRN PRN Reason: Saline Flush Sodium Chloride ([place] Nasal [place] 0.65%) 0 ml EA NARE QIDPRN PRN PRN Reason: Nasal Congestion Spironolactone (Aldactone) 25 mg PO QAM-WM [facility] Last Admin: 08/30/17 09:27 Dose: 25 mg Temazepam (Restoril) 15 mg PO HSPRN PRN PRN Reason: Insomnia Last Admin: 08/28/17 21:39 Dose: 15 mg Tramadol HCl (Ultram) 50 mg PO Q4H PRN PRN Reason: Moderate Pain (4-6) Last Admin: 08/27/17 08:28 Dose: 50 mg
[2017-08-30] MEDS: Famotidine 20 MG TAB PO SCH (10:04)
--- NOTE | 2017-08-30 11:48 | DIS ---
PRIMARY CARE PHYSICIAN: [facility] call admission. DATE OF ADMISSION: 08/26/2017 DATE OF DISCHARGE: 08/30/2017 DISCHARGE DISPOSITION: Home. PRIMARY DISCHARGE DIAGNOSES: 1. Hepatocellular carcinoma. 2. Portal vein thrombosis. 3. Hyponatremia. 4. Esophageal varices. 5. Abnormal liver function tests due to alcoholic cirrhosis of liver. SECONDARY DISCHARGE DIAGNOSIS: Obesity. PRIMARY PROCEDURE/OPERATION: None. RADIOLOGICAL INVESTIGATION: Abdomen MRI showed large hepatic mass in the right lobe of the liver ext ending to the left and right portal vein consistent with the tumor thrombus, gastric and chyna hepati s lymph nodes, splenomegaly, perigastric and perisplenic varices and cirrhosis. SIGNIFICANT LABS: WBC 6.9, hemoglobin 14.1, platelet 148. INR 1.3. Sodium 134, creatinine 0.76, T 40, ALT 29, alkaline phosphatase 109. Tumor marker, alpha fetoprotein level 468, carcinoembryonic antigen. 6.35 Hepatitis profile negative. DISCHARGE MEDICATIONS: Vitamin B12 1000 mcg p.o. daily, Pepcid 20 mg p.o. b.i.d., folic acid 1 mg p. o. daily, Lasix 20 mg p.o. daily, Inderal 10 mg p.o. b.i.d., Aldactone 25 mg p.o. daily, tramadol 50 mg q.6 hourly p.r.n. CONTRAINDICATIONS: None. CODE STATUS: FULL CODE. INPATIENT CONSULTANTS: Dr. Mack was consulted while in hospital. Oncology, Dr. Steve was consul josh while in hospital. TEST RESULTS PENDING ON DISCHARGE: None. ALLERGIES: No known drug allergy. DISCHARGE PLAN: Post hospital, the patient is discharged home per family request. HOSPITAL COURSE: The patient is a 62-year-old male who was admitted by me on 08/26/2017. Please see my HPI for further detail. He initially went to [facility] with abdominal p ain. Over there, the patient had CT of the abdomen and pelvis which showed liver mass and finding koch ggestive of liver cirrhosis with portal hypertension. This patient has a remote history of heavy alc ohol abuse. He was found with liver cirrhosis, esophageal varices which was nonbleeding. Hepatitis profile was negative. He had abnormal LFTs, which was related with cirrhosis of liver. As this anlaisa ent found with a new liver mass and that is why alpha fetoprotein and carcinoembryonic antigen was do ne which was elevated. While in hospital, we did abdomen MRI that also confirmed a liver mass and co nsistent with hepatocellular carcinoma with portal vein thrombosis. The patient was not a candidate for anticoagulation therapy because of varices and risk of bleeding. This patient was given offer of transferring to [facility] for higher level of care while in the hospital, but the patient and family member decided to go home. They are planning to go to [facility] for treatment. At this point, despite our explanation to transfer to other hospital for higher lev el of care, this patient family member does not want to stay in hospital. They prefer to go home and per their request, we are discharging him home. The above-mentioned medication prescription sent to pharmacy. His long-term prognosis is guarded. The patient is seen and examined at bedside today. Plan of care discussed with the patient and famil y member.
--- NOTE | 2017-08-30 15:18 | PRG ---
DATE OF SERVICE: 08/30/2017 SUBJECTIVE: Mr. Dykes is without complaints or pain. Overnight, he did well. OBJECTIVE: VITAL SIGNS: Temperature 98.7, pulse 62, blood pressure 105/57. ABDOMEN: Soft, nontender. There is no rebound or guarding. LABORATORY STUDIES: Sodium 134, electrolytes and BUN and creatinine normal, AST 48, bilirubin 1.7. White count 6.9, hemoglobin 14, and platelet count 148. ASSESSMENT: 1. 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 2. Abdominal pain intermittently after eating. It is unclear if this is related to that. PLAN: I have talked with Hepatology at [facility]. 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 They o ffered to see him there as an in- or outpatient and I facilitated transfer to [facility]. They felt t hat he could be palliated with radiation therapy to the tumor ingrowth in the portal veins to help pr event progression and then he could be treated with chemotherapy or immunotherapy and may have some g ood response, especially since he has got a very good functional status and is essentially asymptomat ic. However, the nurses on the floor called and told me that the transfer was canceled and the patie nt and family decided to go back to [place] where he is from. I came over to the floor, I talked with the patient's son and they are adamant in their decision. I explained to them that he will likely progress quickly without intervention and for that reason, mayela healy arranged transfer to [place] where treatment can be started immediately. They have refused this and they are going to be discharged today with some pain medicine and they plan on going back to [facility] later today or tomorrow. I have told them that I do not think this tumor could be treated there e ffectively. They understand that, and part of his desire to go back home is if he has some liver iss ue that cannot be cured, he wants to be near his family in his hometown which is understandable. I beverly healy told them if they changed their mind they should come back to try to re-facilitate a transfer. T hese radiation treatments for hepatoma are not available here and that is why we are facilitating tra nsfer.
== END 2017-08-30 11:10 | disposition home or self-care (01) | DRG 435 ==
LOC: ERS 01:33 → ONC 03:53
PROVIDERS: ADMIT Family Medicine; ATTEND Family Medicine
DX: C22.0 Liver cell carcinoma (principal); I81 Portal vein thrombosis; I85.10 Secondary esophageal varices without bleeding; D69.6 Thrombocytopenia, unspecified; E87.1 Hypo-osmolality and hyponatremia; K70.30 Alcoholic cirrhosis of liver without ascites; F10.10 Alcohol abuse, uncomplicated; F17.210 Nicotine dependence, cigarettes, uncomplicated; E66.9 Obesity, unspecified; Z68.30 Body mass index [BMI] 30.0-30.9, adult
CPT/HCPCS: 36415; 74183; 80053; 80074; 82105; 82140; 82378; 83690; 85025; 85610; 85730; 90471; 90670; 99285; A4216; G0009; J2270